=== PATIENT | female | born 1990 | race Two or more races ===

== ENCOUNTER 2016-12-21 10:00 | Observation (INO) | payer MEDICAID | END 2016-12-21 11:45 | disposition home or self-care (01) | DRG 566 | LOC: LDRP 10:00 | PROVIDERS: ADMIT Specialist; ATTEND Specialist | DX: O26.892 Other specified pregnancy related conditions, second trimester (principal); R10.9 Unspecified abdominal pain; Z3A.26 26 weeks gestation of pregnancy | CPT/HCPCS: 59025; 81002; G0378 ==

== ENCOUNTER 2023-08-30 23:45 | Emergency (ER) | payer MEDICAID ==
[~2023-08-30] VITALS: Ht 162.6 cm; Wt 75.9 kg
[2023-08-31 00:17] VITALS: BP 119/65; PULSE 125; RESP 20; TEMP 98.8
[2023-08-31 02:25] LABS: COVID19 ANTIGEN SOFIA FIA NEGATIVE (NEGATIVE)
[2023-08-31 02:32] LABS: Rapid Influenza A Negative (Negative); Rapid Influenza B Positive (Negative)
[2023-08-31 03:00] VITALS: O2SAT 99
== END 2023-08-31 03:00 | disposition home or self-care (01) ==
LOC: ER 23:45
DX: O26.893 Other specified pregnancy related conditions, third trimester (principal); O99.843 Bariatric surgery status complicating pregnancy, third trimester; J10.1 Influenza due to other identified influenza virus with other respiratory manifestations; Z3A.28 28 weeks gestation of pregnancy; Z20.822 Contact with and (suspected) exposure to COVID-19
CPT/HCPCS: 36415; 87426; 87804